=== PATIENT | female | born 1975 | race African-American/Black ===

== ENCOUNTER 2018-04-02 05:16 | Emergency (ER) | payer SELFPAY ==
[~2018-04-02] VITALS: Ht 177.8 cm; Wt 86.2 kg
--- NOTE | 2018-04-02 05:16 | NUR ---
PT PRESENTED TO THE ER A C/O SOB. PT APPEARS TO BE SLIGHTLY LABORED. PT'S O2 SAT IS 88%-92% ON RA. DR. TUBBS WAS NOTIFIED AND RT CALLED. PT IS ON THE MONITOR AND CONTINOUS PULSE OX.
[2018-04-02] MEDS ORDERED: ALBUTEROL FS 2.5 MG/3 ML VIAL.NEB ONE (05:49)
[2018-04-02] MEDS ORDERED: IPRATROPIUM NEB FS 0.5 MG/2.5 ML AMPUL.NEB ONE (05:49)
--- NOTE | 2018-04-02 05:53 | NUR ---
PT IS REC'ING A BREATHING TX.
[2018-04-02] MEDS ORDERED: IPRATROPIUM NEB FS 0.5 MG/2.5 ML AMPUL.NEB NEB ONE (06:00)
[2018-04-02] MEDS ORDERED: ALBUTEROL FS 2.5 MG/3 ML VIAL.NEB NEB ONE (06:00)
--- NOTE | 2018-04-02 06:32 | NUR ---
Patient discharged to home in stable condition. Written and verbal after care instructions given. Patient verbalizes understanding of instruction AND RX. PT AMBULATED OUT WITH A STEADY GAIT. VSS. PT STATED THAT SHE FELT MUCH BETTER.
[2018-04-02 06:34] VITALS: BP 148/87
== END 2018-04-02 06:36 | disposition home or self-care (01) ==
LOC: ER 05:20
DX: J45.909 Unspecified asthma, uncomplicated (principal); F17.200 Nicotine dependence, unspecified, uncomplicated
CPT/HCPCS: 71045-TC; A4606; Z7610

== ENCOUNTER 2018-05-02 05:23 | Emergency (ER) | payer MEDICAID ==
[~2018-05-02] VITALS: Ht 172.7 cm; Wt 68.0 kg
[2018-05-02] MEDS ORDERED: ALBUTEROL FS 2.5 MG/3 ML VIAL.NEB ONE ×2 (05:29→06:09)
[2018-05-02] MEDS ORDERED: IPRATROPIUM NEB FS 0.5 MG/2.5 ML AMPUL.NEB ONE ×2 (05:30→06:09)
[2018-05-02] MEDS ORDERED: ALBUTEROL FS 2.5 MG/0.5 ML VIAL.NEB ONE (05:32)
--- NOTE | 2018-05-02 05:32 | NUR ---
PT TO ER BED 2. BIBRA FROM HOME C/O SOB X 12 HOURS. HX OF ASTHMA. PT PLACED IN GOWN AND ON CONTACT PERSON. VSS/RESP TACHYPNEIC/NAD NOTED/SKIN WARM AND DRY/AFEBRILE/DENIES N-V-D/AOX4. AWAITING MD CUMMINGS.
--- NOTE | 2018-05-02 05:35 | NUR ---
NEB TX STARTED AT BEDSIDE BY RN, VO PER DR ANGELES.
[2018-05-02] MEDS: ALBUTEROL FS 2.5 MG/3 ML VIAL.NEB NEB ONE ×2 (05:37→05:39)
[2018-05-02] MEDS ORDERED: methylPREDNISolone SOD SUCC 125 MG/2ML VIAL ONE (06:23)
[2018-05-02] MEDS ORDERED: IPRATROPIUM NEB FS 0.5 MG/2.5 ML AMPUL.NEB NEB ONE (06:30)
[2018-05-02] MEDS ORDERED: methylPREDNISolone SOD SUCC 125 MG/2ML VIAL IV ONE (06:30)
[2018-05-02] MEDS ORDERED: ALBUTEROL FS 2.5 MG/3 ML VIAL.NEB NEB ONE (06:30)
--- NOTE | 2018-05-02 07:10 | NUR ---
IV removed. Catheter intact and site benign. Pressure and 4x4 applied to site. No bleeding noted. Patient discharged to home in stable condition. Written and verbal after care instructions given. Patient verbalizes understanding of instruction. Patient ambulatory with a steady gait.
[2018-05-02 07:12] VITALS: BP 134/88
== END 2018-05-02 07:14 | disposition home or self-care (01) ==
LOC: ER 05:24
DX: J45.901 Unspecified asthma with (acute) exacerbation (principal); F17.200 Nicotine dependence, unspecified, uncomplicated
CPT/HCPCS: 71045-TC; A4606; J2930; Z7610

== ENCOUNTER 2019-02-01 06:49 | Emergency (ER) | payer SELFPAY ==
[~2019-02-01] VITALS: Ht 175.3 cm; Wt 77.1 kg
--- NOTE | 2019-02-01 06:55 | NUR ---
PT BIBSELF COMPLAINING OF SOB X 2 DAYS. PT HAS HX OF ASTHMA, STATES THAT SHE LOST HER INHALER 2 MONTHS AGO. PT AXO4. PT SPEAKING IN FULL SENTENCES. 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 PT SATURATING 97% ON ROOM AIR.
[2019-02-01] MEDS ORDERED: ALBUTEROL FS 2.5 MG/0.5 ML VIAL.NEB NEB STA (07:05)
[2019-02-01] MEDS ORDERED: predniSONE 20 MG TABLET ONE (07:09)
[2019-02-01] MEDS ORDERED: IPRATROPIUM NEB FS 0.5 MG/2.5 ML AMPUL.NEB ONE (07:12)
[2019-02-01] MEDS ORDERED: ALBUTEROL FS 2.5 MG/3 ML VIAL.NEB ONE (07:12)
--- NOTE | 2019-02-01 07:14 | NUR ---
RT AT BEDSIDE FOR BREATHING TREATMENT.
--- NOTE | 2019-02-01 07:15 | NUR ---
received report from Abigail SNOW for joshua. Patient in bed, sitting upright in no apparent distress noted. Will continue to monitor accordingly.
[2019-02-01] MEDS ORDERED: predniSONE 20 MG TABLET PO ONE (07:30)
[2019-02-01] MEDS ORDERED: IPRATROPIUM NEB FS 0.5 MG/2.5 ML AMPUL.NEB NEB ONE (07:30)
--- NOTE | 2019-02-01 07:37 | NUR ---
RT NOTE: RX CLARIFICATION WITH TO GIVE THE PRESCRIBED ALBUTEROL AND ATROVENT DOSE AND DISREGARD DOSE INSTRUCTIONS.
[2019-02-01 07:46] VITALS: BP 135/81
--- NOTE | 2019-02-01 07:47 | NUR ---
Patient discharged to home in stable condition. Written and verbal after care instructions given. Patient verbalizes understanding of instruction.
== END 2019-02-01 07:47 | disposition home or self-care (01) ==
LOC: ER 06:52
DX: J45.909 Unspecified asthma, uncomplicated (principal); F12.90 Cannabis use, unspecified, uncomplicated; F17.200 Nicotine dependence, unspecified, uncomplicated; Z98.890 Other specified postprocedural states
CPT/HCPCS: 94640; 99283; J7512